=== PATIENT | female | born 1970 | race Caucasian/White ===

== ENCOUNTER 2019-10-28 19:46 | Outpatient (REF) | payer BC, SELFPAY ==
[2019-10-28 18:29] LABS: HGB 14.2 g/dL (12.0-15.5); Mean Corpuscular Hemoglobin 28.1 pg (27.0-33.0); Mean Platelet Volume 10.3 fL (8.0-11.0); Platelet Count 249 x1000/uL (130-400); RBC 5.06 m/cumm (4.00-5.20); RBC Distribution Width 15.4 % (11.7-14.6)
[2019-10-28 19:13] LABS: Absolute Lymphocyte Count 9.91 k/cumm (1.2-3.4); Absolute Neutrophil Count 6.38 k/cumm (1.2-6.7); Atypical Lymphocytes % 3
[2019-10-28 19:14] LABS: Diff Comment Manual Differential; RBC Morphology Normal
[2019-10-28 19:16] LABS: ALT 105 U/L (14-59); AST 94 U/L (15-37); Alkaline Phosphatase 108 U/L (46-116); Anion Gap 8.2 mmol/L (3-11); BUN 18 mg/dL (7-18); Bilirubin, Total 0.5 mg/dL (0.2-1.0); CO2 27.8 mmol/L (21.0-32.0); CREATININE 0.97 mg/dL (0.55-1.02); Calcium 8.6 mg/dL (8.5-10.1); Chloride 102 mmol/L (98-107); Glucose 132 mg/dL (74-106); Potassium 4.5 mmol/L (3.5-5.1); Sodium 138 mmol/L (136-145); Total Protein 7.8 g/dL (6.4-8.2)
== END 2019-10-28 20:06 ==
LOC: NCHCN 19:46
PROVIDERS: PCP Physician Assistant; Visit Provider Physician Assistant
DX: R50.9 Fever, unspecified (principal)
CPT/HCPCS: 80053; 85025

== ENCOUNTER 2019-11-01 16:19 | Outpatient (REF) | payer BC, SELFPAY ==
[2019-11-01 18:10] LABS: Abs Immature Grans 0.11 k/cumm (0.0-0.09); HCT 41.6 % (36.0-46.0); HGB 13.6 g/dL (12.0-15.5); Mean Corp. HGB Concentration 32.7 g/dL (32.0-36.0); Mean Corpuscular Hemoglobin 27.7 pg (27.0-33.0); Mean Corpuscular Volume 84.7 fL (80-95); Mean Platelet Volume 10.6 fL (8.0-11.0); Platelet Count 262 x1000/uL (130-400); RBC 4.91 m/cumm (4.00-5.20); White Blood Cell Count 19.34 k/cumm (4.4-10.8)
[2019-11-01 18:49] LABS: Mono Screening Negative (Negative)
[2019-11-01 19:44] LABS: Absolute Neutrophil Count 5.42 k/cumm (1.2-6.7)
[2019-11-01 19:45] LABS: Absolute Eosinophil Count 0.19 k/cumm (0.0-0.7); Absolute Lymphocyte Count 12.96 k/cumm (1.2-3.4); Absolute Monocyte Count 0.77 k/cumm (0.11-0.7); Atypical Lymphocytes % 25; Diff Comment Manual Differential; RBC Morphology Normal
[2019-11-04 10:40] LABS: EBNA IgG Positive (Negative); EBV Interpretation (See Note); VCA IgG Positive (Negative); VCA IgM Positive (Negative)
[2019-11-04 11:45] LABS: Hepatitis A Antibody IgM Negative (Negative); Hepatitis B Core Antibody Negative (Negative); Hepatitis B surface Ag Negative (Negative); Hepatitis C Ab w Rflx HCV PCR Negative (Negative)
== END 2019-11-01 16:39 ==
LOC: NCHCN 16:19
PROVIDERS: PCP Physician Assistant; Visit Provider Physician Assistant
DX: R50.9 Fever, unspecified (principal)
CPT/HCPCS: 86704; 86709; 86803; 87340; 85025; 86308; 86664; 86665

== ENCOUNTER 2019-11-11 14:58 | Outpatient (REF) | payer BC, SELFPAY ==
[2019-11-11 21:16] LABS: HCT 39.9 % (36.0-46.0); HGB 12.7 g/dL (12.0-15.5); Mean Corp. HGB Concentration 31.8 g/dL (32.0-36.0); Mean Corpuscular Volume 87.9 fL (80-95); Mean Platelet Volume 10.3 fL (8.0-11.0); Platelet Count 311 x1000/uL (130-400); RBC 4.54 m/cumm (4.00-5.20); RBC Distribution Width 16.1 % (11.7-14.6); White Blood Cell Count 11.94 k/cumm (4.4-10.8)
[2019-11-11 21:43] LABS: ALT 120 U/L (14-59); AST 124 U/L (15-37); Alkaline Phosphatase 86 U/L (46-116); Bilirubin, Direct 0.16 mg/dL (0.00-0.20); Bilirubin, Total 0.6 mg/dL (0.2-1.0); Total Protein 7.4 g/dL (6.4-8.2)
== END 2019-11-11 15:18 ==
LOC: NCHCN 14:58
PROVIDERS: PCP Physician Assistant; Visit Provider Family Medicine
DX: R50.9 Fever, unspecified (principal); R19.8 Other specified symptoms and signs involving the digestive system and abdomen; E66.01 Morbid (severe) obesity due to excess calories
CPT/HCPCS: 80076; 85027; 83036

== ENCOUNTER 2019-12-13 12:56 | Outpatient (REF) | payer BC, SELFPAY ==
[2019-12-13 21:04] LABS: ALT 146 U/L (14-59); AST 118 U/L (15-37); Albumin 3.7 g/dL (3.4-5.0); Alkaline Phosphatase 94 U/L (46-116); Bilirubin, Direct 0.18 mg/dL (0.00-0.20); Bilirubin, Total 0.6 mg/dL (0.2-1.0); Total Protein 8.7 g/dL (6.4-8.2)
== END 2019-12-13 13:16 ==
LOC: NCHCN 12:56
PROVIDERS: PCP Physician Assistant; Visit Provider Family Medicine
DX: R74.0 Nonspecific elevation of levels of transaminase and lactic acid dehydrogenase [LDH] (principal); E11.9 Type 2 diabetes mellitus without complications
CPT/HCPCS: 80076

== ENCOUNTER 2019-12-20 15:53 | Outpatient (REF) | payer BC, SELFPAY ==
[2019-12-20 22:15] LABS: COMMENT (LAB VIEW ONLY) 96.43 mg/dL; Microalb ug/mg Crea 2.8 ug/mg Cr
== END 2019-12-20 16:13 ==
LOC: NCHCN 15:53
PROVIDERS: PCP Physician Assistant; Visit Provider Family Medicine
DX: E11.9 Type 2 diabetes mellitus without complications (principal)
CPT/HCPCS: 82043; 82570

== ENCOUNTER 2020-05-26 17:30 | Outpatient (REF) | payer BC, SELFPAY ==
[2020-05-26 22:08] LABS: ALT 46 U/L (14-59); AST 37 U/L (15-37); Albumin 3.7 g/dL (3.4-5.0); Alkaline Phosphatase 93 U/L (46-116); Bilirubin, Direct 0.12 mg/dL (0.00-0.20); Bilirubin, Total 0.5 mg/dL (0.2-1.0); Total Protein 8.1 g/dL (6.4-8.2)
== END 2020-05-26 17:50 ==
LOC: NCHCN 17:30
PROVIDERS: PCP Physician Assistant; Visit Provider Family Medicine
DX: K76.0 Fatty (change of) liver, not elsewhere classified (principal)
CPT/HCPCS: 80076

== ENCOUNTER 2020-12-08 13:59 | Outpatient (REF) | payer BC, SELFPAY ==
[2020-12-08 15:31] LABS: ALT 59 U/L (14-59); AST 42 U/L (15-37); Albumin 3.8 g/dL (3.4-5.0); Alkaline Phosphatase 95 U/L (46-116); Anion Gap 11.4 mmol/L (3-11); BUN 20 mg/dL (7-18); Bilirubin, Total 0.6 mg/dL (0.2-1.0); CO2 27.6 mmol/L (21.0-32.0); CREATININE 0.8 mg/dL (0.55-1.02); Chloride 103 mmol/L (98-107); Glucose 148 mg/dL (74-106); Potassium 4.3 mmol/L (3.5-5.1); Sodium 142 mmol/L (136-145); TSH 1.87 uIU/mL (0.36-3.74); Total Protein 8.2 g/dL (6.4-8.2)
[2020-12-08 15:33] LABS: HCT 46.9 % (36.0-46.0); HGB 14.7 g/dL (11.2-15.7); MCH 27.5 pg (27.0-33.0); MCHC 31.3 % (32.0-36.0); MCV 87.8 fL (80-95); MPV 10.6 fL (8.0-11.0); Platelet Count 304 10^3/uL (130-400); RBC 5.34 10^6/uL (3.93-5.22); RDW 13.8 % (11.7-14.6); RDW-SD 44.2 fL; WBC 11.93 10^3/uL (4.4-10.8)
[2020-12-08 15:51] LABS: ESR 57 mm//hr (0-30)
[2020-12-08 21:22] LABS: COMMENT (LAB VIEW ONLY) 162.31 mg/dL; Microalb ug/mg Crea 6.3 ug/mg Cr
[2020-12-10 04:43] LABS: Vitamin D 25 Total 18.9 ng/mL (30-100)
== END 2020-12-08 14:00 | disposition home or self-care (01) ==
LOC: NCHCN 13:59
PROVIDERS: PCP Physician Assistant; Visit Provider Family Medicine
DX: E11.9 Type 2 diabetes mellitus without complications (principal); R53.83 Other fatigue; I10 Essential (primary) hypertension; R06.09 Other forms of dyspnea
CPT/HCPCS: 80053; 82306; 85027; 85652; 82043; 82570; 84443

== ENCOUNTER 2021-09-14 15:10 | Outpatient (REF) | payer BC, SELFPAY ==
[2021-09-14 14:53] LABS: ALT 37 U/L (14-59); AST 28 U/L (15-37); Alkaline Phosphatase 104 U/L (46-116); Anion Gap 12.6 mmol/L (3-11); BUN 41 mg/dL (7-18); Bilirubin, Total 0.4 mg/dL (0.2-1.0); CO2 25.4 mmol/L (21.0-32.0); CREATININE 1.2 mg/dL (0.55-1.02); Calcium 9.5 mg/dL (8.5-10.1); Calculated LDL 121 mg/dL (<100); Chloride 102 mmol/L (98-107); Cholesterol 169 mg/dL (<200); Estimated GFR 47.36 (mL/min/1.73m2); Glucose 87 mg/dL (74-106); HDL Cholesterol 28 mg/dL (40-60); Potassium 4.4 mmol/L (3.5-5.1); Sodium 140 mmol/L (136-145); Total Protein 8.4 g/dL (6.4-8.2); Triglyceride 103 mg/dL (<150)
== END 2021-09-14 15:11 | disposition home or self-care (01) ==
LOC: NCHCN 15:10
PROVIDERS: PCP Physician Assistant; Visit Provider Family Medicine
DX: E11.9 Type 2 diabetes mellitus without complications (principal); I10 Essential (primary) hypertension; E78.5 Hyperlipidemia, unspecified
CPT/HCPCS: 80053; 80061

== ENCOUNTER 2021-12-14 10:02 | Outpatient (REF) | payer BC, SELFPAY ==
[2021-12-14 15:41] LABS: COMMENT (LAB VIEW ONLY) 104.69 mg/dL; Microalb ug/mg Crea 6.2 ug/mg Cr
== END 2021-12-14 10:03 | disposition home or self-care (01) ==
LOC: NCHCN 10:02
PROVIDERS: PCP Physician Assistant; Visit Provider Family Medicine
DX: E11.9 Type 2 diabetes mellitus without complications (principal); R06.09 Other forms of dyspnea; E66.01 Morbid (severe) obesity due to excess calories
CPT/HCPCS: 82043; 82570

== ENCOUNTER 2022-04-01 18:49 | Outpatient (REF) | payer BC, SELFPAY ==
[2022-04-01 18:07] LABS: HCT 44.7 % (36.0-46.0); HGB 14.5 g/dL (11.2-15.7); MCH 27.7 pg (27.0-33.0); MCHC 32.4 % (32.0-36.0); MCV 85 fL (80-95); MPV 10.8 fL (8.0-11.0); Platelet Count 405 10^3/uL (130-400); RBC 5.24 10^6/uL (3.93-5.22); RDW 13.7 % (11.7-14.6); RDW-SD 42.8 fL; WBC 20.05 10^3/uL (4.4-10.8)
[2022-04-01 18:19] LABS: ALT 25 U/L (14-59); AST 25 U/L (15-37); Albumin 3.9 g/dL (3.4-5.0); Alkaline Phosphatase 110 U/L (46-116); Anion Gap 14.9 mmol/L (3-11); Bilirubin, Total 0.5 mg/dL (0.2-1.0); CO2 21.1 mmol/L (21.0-32.0); Calcium 9.1 mg/dL (8.5-10.1); Chloride 94 mmol/L (98-107); Estimated GFR 12.47 (mL/min/1.73m2); Glucose 110 mg/dL (74-106); Lipase 229 U/L (73-393); Potassium 4.2 mmol/L (3.5-5.1); Sodium 130 mmol/L (136-145); Total Protein 9.2 g/dL (6.4-8.2)
[2022-04-01 18:36] LABS: BUN 95 mg/dL (7-18); CREATININE 3.8 mg/dL (0.55-1.02)
== END 2022-04-01 18:50 | disposition home or self-care (01) ==
LOC: NCHCN 18:49
PROVIDERS: PCP Physician Assistant; Visit Provider Family Medicine
DX: D50.9 Iron deficiency anemia, unspecified (principal); R11.10 Vomiting, unspecified; R19.7 Diarrhea, unspecified; R10.9 Unspecified abdominal pain
CPT/HCPCS: 80053; 83690; 85027

== ENCOUNTER 2022-04-13 11:12 | Outpatient (REF) | payer BC, SELFPAY ==
[2022-04-13 16:05] LABS: MCH 27.3 pg (27.0-33.0); MCHC 31.6 % (32.0-36.0); MCV 86 fL (80-95); MPV 10.5 fL (8.0-11.0); Platelet Count 335 10^3/uL (130-400); RDW 13.8 % (11.7-14.6); RDW-SD 43.8 fL; WBC 14.22 10^3/uL (4.4-10.8)
[2022-04-13 16:33] LABS: Anion Gap 6.3 mmol/L (3-11); BUN 25 mg/dL (7-18); CO2 29.7 mmol/L (21.0-32.0); CREATININE 1.1 mg/dL (0.55-1.02); Calcium 9.1 mg/dL (8.5-10.1); Chloride 106 mmol/L (98-107); Estimated GFR 60.46 (mL/min/1.73m2); Glucose 99 mg/dL (74-106); Lipase 142 U/L (73-393); Potassium 4.1 mmol/L (3.5-5.1); Sodium 142 mmol/L (136-145)
== END 2022-04-13 11:13 | disposition home or self-care (01) ==
LOC: NCHCN 11:12
PROVIDERS: PCP Physician Assistant; Visit Provider Family Medicine
DX: E86.0 Dehydration (principal); N17.9 Acute kidney failure, unspecified; I95.9 Hypotension, unspecified; R74.8 Abnormal levels of other serum enzymes
CPT/HCPCS: 80048; 82306; 83690; 85027

== ENCOUNTER 2022-05-31 13:52 | Outpatient (REF) | payer BC, SELFPAY ==
[2022-05-31 16:19] LABS: Anion Gap 8.5 mmol/L (3-11); BUN 23 mg/dL (7-18); CO2 27.5 mmol/L (21.0-32.0); CREATININE 0.8 mg/dL (0.55-1.02); Calcium 9.7 mg/dL (8.5-10.1); Chloride 103 mmol/L (98-107); Glucose 127 mg/dL (74-106); Potassium 3.9 mmol/L (3.5-5.1); Sodium 139 mmol/L (136-145)
== END 2022-05-31 13:53 | disposition home or self-care (01) ==
LOC: NCHCN 13:52
PROVIDERS: PCP Physician Assistant; Visit Provider Family Medicine
DX: I95.9 Hypotension, unspecified (principal); E86.0 Dehydration
CPT/HCPCS: 80048

== ENCOUNTER 2023-02-20 15:49 | Outpatient (REF) | payer BC, SELFPAY ==
[2023-02-20 21:29] LABS: Abs Immature Grans 0.07 10^3/uL (0.0-0.06); Absolute Basophil Count 0.05 10^3/uL (0.0-0.2); Absolute Eosinophil Count 0.27 10^3/uL (0.0-0.7); Absolute Lymphocyte Count 3.33 10^3/uL (1.2-3.4); Absolute Monocyte Count 0.72 10^3/uL (0.1-0.8); Basophils % 0.4; HCT 42.7 % (36.0-46.0); HGB 13.5 g/dL (11.2-15.7); Immature Grans % 0.5; Lymphocytes % 24.6; MCH 27.1 pg (27.0-33.0); MCHC 31.6 % (32.0-36.0); MCV 86 fL (80-95); MPV 10.2 fL (8.0-11.0); Monocytes % 5.3; Neutrophils % 67.2; Platelet Count 368 10^3/uL (130-400); RBC 4.99 10^6/uL (3.93-5.22); RDW 14.3 % (11.7-14.6); RDW-SD 45.1 fL; WBC 13.54 10^3/uL (4.4-10.8)
[2023-02-20 21:35] LABS: ESR 72 mm/hr (0-30)
[2023-02-20 21:52] LABS: Anion Gap 12.2 mmol/L (3-11); BUN 26 mg/dL (7-18); C-Reactive Protein 2.51 mg/dL (0.0-0.3); CO2 25.8 mmol/L (21.0-32.0); CREATININE 1.1 mg/dL (0.55-1.02); Calcium 9.6 mg/dL (8.5-10.1); Chloride 102 mmol/L (98-107); Estimated GFR 60.08 (mL/min/1.73m2); Glucose 112 mg/dL (74-106); Potassium 3.7 mmol/L (3.5-5.1); Sodium 140 mmol/L (136-145)
== END 2023-02-20 15:50 | disposition home or self-care (01) ==
LOC: NCHCN 15:49
PROVIDERS: PCP Physician Assistant; Visit Provider Family Medicine
DX: M79.641 Pain in right hand (principal); E66.01 Morbid (severe) obesity due to excess calories; E11.9 Type 2 diabetes mellitus without complications
CPT/HCPCS: 80048; 85652; 85025; 86140

== ENCOUNTER 2023-02-23 09:57 | Outpatient (REF) | payer BC, SELFPAY ==
[2023-02-23 22:27] LABS: Rheumatoid Factor <8.6 IU/mL (<12.0)
[2023-02-24 09:06] LABS: Cyclic Citrullinated Peptide <2.5 U/mL (<5.0)
[2023-02-24 12:41] LABS: Lyme Ab w Rflx to Lyme Confirm Negative (Negative)
[2023-02-24 14:19] LABS: ANA Interpretation Positive (Negative); ANA Titer Pattern 1:320 Homogeneous
== END 2023-02-23 09:58 | disposition home or self-care (01) ==
LOC: NCHCN 09:57
PROVIDERS: PCP Physician Assistant; Visit Provider Family Medicine
DX: M79.641 Pain in right hand (principal)
CPT/HCPCS: 86200; 86038; 86431; 86618

== ENCOUNTER 2023-03-08 18:06 | Outpatient (REF) | payer BC, SELFPAY ==
[2023-03-08 22:02] LABS: ALT 38 U/L (14-59); AST 32 U/L (15-37); Albumin 3.5 g/dL (3.4-5.0); Alkaline Phosphatase 105 U/L (46-116); Bilirubin, Total 0.5 mg/dL (0.2-1.0); Folate > 20.0 ng/mL (8.6-20.0); Total Protein 8.2 g/dL (6.4-8.2)
[2023-03-08 22:04] LABS: COMMENT (LAB VIEW ONLY) 165.43 mg/dL
[2023-03-08 22:08] LABS: Microalb ug/mg Crea 70.8 ug/mg Cr
[2023-03-08 22:12] LABS: Bilirubin, Direct 0.1 mg/dL (0.0-0.2)
== END 2023-03-08 18:07 | disposition home or self-care (01) ==
LOC: NCHCN 18:06
PROVIDERS: PCP Physician Assistant; Visit Provider Family Medicine
DX: M06.9 Rheumatoid arthritis, unspecified (principal); E11.9 Type 2 diabetes mellitus without complications
CPT/HCPCS: 80076; 82043; 82570; 82746

== ENCOUNTER 2023-07-21 16:06 | Outpatient (REF) | payer BC, SELFPAY ==
--- OUTSIDE RECORDS SUMMARY | 2023-07-21 16:11 | XMS_ITS | CCD ---
Author Name Unknown Address [address] [place] [address] [phone] Organization Unknown Address [address] [place] [address] [phone] Care Team Providers Care Geopolitics Teacher Name Role Phone ANNETTE ADAMES Attending Physician [phone] Vital Signs Unknown or Not Available. Allergies Unknown or Not Available. Procedures Unknown or Not Available. History of Immunizations Unknown or Not Available. Problems Problem Code Start Date Resolved Date Status Hypertension 88948297 Active Acute renal failure 02136338 Activ e Dehydration 71270801 Active Hypotension 20292635 Active Morbid obesity 286877835 Active Diabetes 2 42315472 Active Diabetes type I 58456903 04/02/2022 Resolved Results Unknown or Not Available. Active Medications Medication Code Dose Units Frequency Route Modificatio n Start Date/Time Indomethacin 50MG Oral Capsule 19770814 1 CAPSULE EVERY 8 HOURS ORAL 02/11/2023 08:02 Prescription Detail TAKE 1 CAPSULE ORAL EVERY 8 HOURS Vitamin D 1000IU Oral Tablet 624027 3015 INTERNATIONAL UNITS DAILY ORAL 04/03/2022 10:50 Prescription Detail TAKE 1000 INTERNATIONAL UNITS ORAL DAILY Medications Administered During Visit Unknown or Not Available. Encounters Encounter Diagnosis Diagnosis Code Start Date Acute kidney failure, unspecified N179 04/02/2022 Social History Smoking Status Code Start Date End Date Never smoker [id number] Patient Decision Aids Unknown or Not Available. Discharge Instructions You were admitted to [facility] on 04/02/2022 02:04 with a principal diagnosis of Acute kidney failure, unspecified You were discharged from [facility] on 04/03/2022 02:04 Should you have any questions prior to discharge, please contact a member of your healthcare team. If you have left the hospital and have any questions, please contact your primary care physician. Chief Complaint and Reason For Visit Unknown or Not Available. Function Status Unknown or Not Available. Plan of Care Unknown or Not Available. Referral/Transition of Care Unknown or Not Available.
--- OUTSIDE RECORDS SUMMARY | 2023-07-21 16:11 | XMS_ITS | CCD ---
Author Name Unknown Address [address] [place] [address] [id number] Organization Unknown Address [address] [place] [address] [phone] Care Team Providers Care Domestic Housekeeper Name Role Phone JULIET REYES Attending Physician [phone] JULIET REYES Rounding (Secondary) Physician [phone] Vital Signs Unknown or Not Available. Allergies Unknown or Not Available. Procedures Unknown or Not Available. History of Immunizations Unknown or Not Available. Problems Problem Code Start Date Resolved Date Status Hypertension 99108740 Active Acute renal failure 25234097 Activ e Dehydration 85263729 Active Hypotension 94236510 Active Morbid obesity 339115322 Active Diabetes 2 34532163 Active Diabetes type I 42135399 04/02/2022 Resolved Results Unknown or Not Available. Active Medications Medication Code Dose Units Frequency Route Modificatio n Start Date/Time Indomethacin 50MG Oral Capsule 19770814 1 CAPSULE EVERY 8 HOURS ORAL 02/11/2023 08:02 Prescription Detail TAKE 1 CAPSULE ORAL EVERY 8 HOURS Vitamin D 1000IU Oral Tablet 242698 9078 INTERNATIONAL UNITS DAILY ORAL 04/03/2022 10:50 Prescription Detail TAKE 1000 INTERNATIONAL UNITS ORAL DAILY Medications Administered During Visit Unknown or Not Available. Encounters Encounter Diagnosis Diagnosis Code Start Date Paresthesia 78303165 02/11/2022 Social History Smoking Status Code Start Date End Date Never smoker 797518045 Patient Decision Aids Unknown or Not Available. Discharge Instructions You were admitted to [facility] on 02/11/2022 15:31 with a principal diagnosis of Paresthesia of skin You were discharged from [facility] on 02/11/2022 00:00 Should you have any questions prior to [...]
--- OUTSIDE RECORDS SUMMARY | 2023-07-21 16:11 | XMS_ITS | CCD ---
Author Name Unknown Address [address] [place] [address] [id number] Organization Unknown Address [address] [place] [address] [id number] Care Team Providers Care Landscape Designer Name Role Phone ANNETTE ADAMES Attending Physician [phone] ANNETTE ADAMES Er Physician [phone] MAAME PEREYRA (Secondary) Physician [phone] MATTHEW Arango Registered Nurse [phone] Vital Signs Vital Sign Value Unit Date/Time Recent/Initial ? BMI (Body Mass Index) 47.49 kg/m^2 04/02/2022 09: 17 Initial VS Weight Measured 251.33 lbs 04/02/2022 09:17 Ini tial VS Height 61 in 04/02/2022 09:17 Initial VS BSA (Body Surface Area) 2.22 m^2 04/02/2022 0 9:17 Initial VS BP Systolic 90 mmHg 04/02/2022 09:17 Initial VS BP Diastolic 44 mmHg 04/02/2022 09:17 Initia l VS Respiratory Rate 20 bpm 04/02/2022 09:17 In itial VS Heart Rate 85 bpm 04/02/2022 09:17 Initial VS O2 % BldC Oximetry 95 % 04/02/2022 09:17 Initial VS Body Temperature 36.2 degrees 04/02/2022 09:17 In itial VS BMI (Body Mass Index) 47.67 kg/m^2 04/02/2022 17: 55 Most Recent VS Weight Measured 252.32 lbs 04/02/2022 17:55 Mos t Recent VS Height 61 in 04/02/2022 17:55 Most Rec ent VS BSA (Body Surface Area) 2.22 m^2 04/02/2022 1 7:55 Most Recent VS BP Systolic 114 mmHg 04/03/2022 07:38 Most Re cent VS BP Diastolic 51 mmHg 04/03/2022 07:38 Most R ecent VS Respiratory Rate 20 bpm 04/03/2022 07:[address] Recent VS Heart Rate 81 bpm 04/03/2022 07:38 Most Rec ent VS O2 % BldC Oximetry 99 % 04/03/2022 07:38 Most Recent VS Body Temperature 36.2 degrees 04/03/2022 07:[address] Recent VS Allergies Unknown or Not Available. Procedures Unknown or Not Available. History of Immunizations Unknown or Not Available. Problems Problem Code Start Date Resolved Date Status Hypertension 80273926 Active Acute renal failure 92875381 Activ e Dehydration 26933270 Active Hypotension 46379071 Active Morbid obesity 383009141 Active Diabetes 2 87330423 Active Diabetes type I 79765636 04/02/2022 Resolved Results BASIC METABOLIC PANEL (BMP) - Collect Date/Time: 04/03/2022 06:25 Test Name Code Test Result Test Units Test Ref Rang e GLUCOSE 2345-7 106 mg/dL L=70 H=116 BUN 3094-0 84 mg/dL L=6 H=25 CREATININE 2160-0 1.84 mg/dL L=0.51 H=0.95 SODIUM SERUM 2951-2 141 mmol/L L=136 H=145 POTASSIUM SERUM 2823-3 4.0 mmol/L L=3.4 H=5 .2 CHLORIDE SERUM 2075-0 107 mmol/L L=96 H=110 CARBON DIOXIDE (CO2) 2028-9 25 mmol/L L=22 H=34 ANION GAP 76050-3 9.0 mmol/L CALCIUM SERUM 74703-2 8.4 mg/dL L=8.2 H=10. 2 AGE 51 years eGFR (non-Afr.Amer.) 46067-2 29 mL/min eGFR (Afr-Greek) 85543-9 35 mL/min BASIC METABOLIC PANEL (BMP) - Collect Date/Time: 04/02/2022 22:50 Test Name Code Test Result Test Units Test Ref Rang e GLUCOSE 2345-7 100 mg/dL L=70 H=116 BUN 3094-0 95 mg/dL L=6 H=25 CREATININE 2160-0 2.57 mg/dL L=0.51 H=0.95 SODIUM SERUM 2951-2 139 mmol/L L=136 H=145 POTASSIUM SERUM 2823-3 3.7 mmol/L L=3.4 H=5 .2 CHLORIDE SERUM 2075-0 105 mmol/L L=96 H=110 CARBON DIOXIDE (CO2) 2028-9 23 mmol/L L=22 H=34 ANION GAP 77752-4 10.6 mmol/L CALCIUM SERUM 92830-4 8.3 mg/dL L=8.2 H=10. 2 AGE 51 years eGFR (non-Afr.Amer.) 83923-5 20 mL/min eGFR (Afr-Greek) 83835-6 24 mL/min COMPREHENSIVE METABOLIC PANE L (CMP) - Collect Date/Time: 04/02/2022 10:15 Test Name Code Test Result Test Units Test Ref Rang e GLUCOSE 2345-7 105 mg/dL L=70 H=116 BUN 3094-0 108 mg/dL L=6 H=25 CREATININE 2160-0 5.23 mg/dL L=0.51 H=0.95 SODIUM SERUM 2951-2 130 mmol/L L=136 H=145 POTASSIUM SERUM 2823-3 4.2 mmol/L L=3.4 H=5 .2 CHLORIDE SERUM 2075-0 92 mmol/L L=96 H=110 CARBON DIOXIDE (CO2) 2028-9 23 mmol/L L=22 H=34 ANION GAP 91671-9 15.4 mmol/L CALCIUM SERUM 47819-8 9.2 mg/dL L=8.2 H=10. 2 BILIRUBIN TOTAL 1975-2 0.4 mg/dL L=0.0 H=1 .3 ALK. PHOS. 6768-6 107 U/L L=46 H=116 SGOT (AST) 1920-8 13 U/L L=15 H=37 SGPT (ALT) 1742-6 22 U/L L=12 H=78 TOTAL PROTEIN 2885-2 9.2 gm/dL L=6.0 H=8.0 ALBUMIN 1751-7 4.1 gm/dL L=3.4 H=5.0 AGE 51 years eGFR (non-Afr.Amer.) 30285-5 9 mL/min eGFR (Afr-Greek) 40335-5 10 mL/min LIPASE* - Collect Date/Time: 04/03/2022 06:25 Test Name Code Test Result Test Units Test Ref Rang e LIPASE 521 U/L L=73 H=393 LIPASE* - Collect Date/Time: 04/02/2022 10:15 Test Name Code Test Result Test Units Test Ref Rang e LIPASE 519 U/L L=73 H=393 MAGNESIUM SERUM* - Collect D ate/Time: 04/02/2022 10:15 Test Name Code Test Result Test Units Test Ref Rang e MAGNESIUM 27230-9 2.0 mg/dL L=1.8 H=2.4 TRIGLYCERIDES SERUM - Collec t Date/Time: 04/03/2022 06:25 Test Name Code Test Result Test Units Test Ref Rang e TRIGLYCERIDES 2571-8 124 mg/dL L=53 H=223 CBC W/ DIFFERENTIAL* - Colle ct Date/Time: 04/03/2022 06:25 Test Name Code Test Result Test Units Test Ref Rang e WBC 6690-2 12.82 th/cmm L=5.00 H=10.00 NEUT % 54.7 % L=40.0 H=80.0 LYMPH % 35.6 % L=10.0 H=50.0 MONO % 35450-3 4.8 % L=2.0 H=12.0 EOS % 3.8 % L=0.0 H=8.0 BASO % 0.5 % L=0.0 H=3.0 IG % 2514-8 0.6 % L=0.0 H=1.1 NRBC % 87438-6 0.0 % L=0.0 H=0.0 NEUT abs count 751-8 7.0 th/cmm L=1.6 H=8. 4 LYMPH abs count 731-0 4.6 th/cmm L=1.5 H=4 .0 MONO abs count 742-7 0.6 th/cmm L=0.2 H=1. 0 EOS abs count 711-2 0.5 th/cmm L=0.0 H=0.5 BASO abs count 704-7 0.1 th/cmm L=0.0 H=0. 2 IG abs count 70138-6 0.1 th/cmm L=0.0 H=0.1 NRBC abs count 43987-9 0.0 mil/cmm L=0.0 H=0. 0 RBC 789-8 4.06 mil/cmm L=3.90 H=5.40 HEMOGLOBIN 718-7 11.3 gm/dL L=12.0 H=16.0 HEMATOCRIT 4544-3 35 % L=37 H=47 MCV 787-2 86 fL L=82 H=92 MCH 785-6 27.8 pg L=27.0 H=31.0 MCHC 786-4 32.5 % L=32.0 H=36.0 RDW-SD 788-0 42.9 fL L=39.0 H=49.0 PLATELET COUNT 777-3 291 th/cmm L=150 H=45 0 Atyp lymphs 1+ N/A CBC W/ DIFFERENTIAL* - [facility] ct Date/Time: 04/02/2022 10:15 Test Name Code Test Result Test Units Test Ref Rang e WBC 6690-2 16.01 th/cmm L=5.00 H=10.00 NEUT % 63.7 % L=40.0 H=80.0 LYMPH % 28.5 % L=10.0 H=50.0 MONO % 30255-5 4.2 % L=2.0 H=12.0 EOS % 2.4 % L=0.0 H=8.0 BASO % 0.6 % L=0.0 H=3.0 IG % 2514-8 0.6 % L=0.0 H=1.1 NRBC % 61933-9 0.0 % L=0.0 H=0.0 NEUT abs count 751-8 10.2 th/cmm L=1.6 H=8. 4 LYMPH abs count 731-0 4.6 th/cmm L=1.5 H=4 .0 MONO abs count 742-7 0.7 th/cmm L=0.2 H=1. 0 EOS abs count 711-2 0.4 th/cmm L=0.0 H=0.5 BASO abs count 704-7 0.1 th/cmm L=0.0 H=0. 2 IG abs count 76215-9 0.1 th/cmm L=0.0 H=0.1 NRBC abs count 66410-3 0.0 mil/cmm L=0.0 H=0. 0 RBC 789-8 5.28 mil/cmm L=3.90 H=5.40 HEMOGLOBIN 718-7 14.4 gm/dL L=12.0 H=16.0 HEMATOCRIT 4544-3 44 % L=37 H=47 MCV 787-2 84 fL L=82 H=92 MCH 785-6 27.3 pg L=27.0 H=31.0 MCHC 786-4 32.4 % L=32.0 H=36.0 RDW-SD 788-0 42.6 fL L=39.0 H=49.0 PLATELET COUNT 777-3 344 th/cmm L=150 H=45 0 Atyp lymphs 1+ N/A LATOYA COVID RHEONIX* - Allie ect Date/Time: 04/02/2022 11:30 Test Name Code Test Result Test Units Test Ref Rang e Tier- 81115-5 INPATIENT/ED N/A SARS COV2 RNA: 42561-0 NEGATIVE N/A REFERENCE RANGE: NEGAT URINALYSIS WITH REFLEX CULT IF POSITIVE* - Collect Date/Time: 04/02/2022 11:48 Test Name Code Test Result Test Units Test Ref Rang e COLLECTION MODE: 16785-2 CLEAN CATCH N/A Color 5778-6 YELLOW N/A yellow Appearance 5767-9 CLEAR N/A clear Glucose urine 22567-5 NEGATIVE N/A negative mg /dl Bilirubin 5770-3 NEGATIVE N/A negative Ketones 2514-8 NEGATIVE N/A negative mg/dl Spec gravity 5811-5 1.015 N/A 1.003 - 1.03 0 pH urine 2756-5 5.5 N/A 5.0 - 7.0 Protein 45515-9 NEGATIVE N/A negative mg/dl Urobilinogen 27040-6 0.2 N/A <or= 1 EU/dl Nitrite. 5802-4 NEGATIVE N/A negative Blood 5794-3 NEGATIVE N/A negative Leukocytes. NEGATIVE N/A negative MICROSCOPIC NOT INDICAT N/A Active Medications Medications Administered During Visit Medication Dose Units Frequency Route Date/Time of Last Dose SODIUM CHLORIDE 0.9% 1000ML 1000 ML X1 04/02/2022 11:10 ONDANSETRON INJ SDV: 4MG/2ML 4 MG X1 I [employer] 04/02/2022 11:09 SODIUM CHLORIDE 0.9% 1000ML 1000 ML X1 04/02/2022 13:46 SODIUM CHLORIDE 0.9% 1000ML 1000 ML CONT 04/03/2022 09:27 SODIUM CHLORIDE 0.9% FLUSH 1 0ML SYRINGE 2 ML Q8H IVP 04/03/2022 06:2 5 Encounters Encounter Diagnosis Diagnosis Code Start Date Acute kidney failure, unspecified N179 04/02/2022 Social History Smoking Status Code Start Date End Date Never smoker 005389930 Patient Decision Aids Unknown or Not Available. Discharge Instructions You were admitted to [facility] on 04/02/2022 13:29 with a principal diagnosis of Acute kidney failure, unspecified You had the following tests done:BASIC METABOLIC PANEL (BMP)CBC W/ DIFFERENTIAL*LIPASE*TRIGLYCERIDES SERUMBASIC METABOLIC PANEL (BMP)URINALYSIS WITH REFLEX CULT IF POSITIVE*[facility] COVID RHEONIX*CBC W/ DIFFERENTIAL*COMPREHENSIVE METABOLIC PANEL (CMP)LIPASE*MAGNESIUM SERUM* You were discharged from [facility] on 04/03/2022 11:40 Should you have any questions prior to discharge, please contact a member of your healthcare team. If you have left the hospital and have any questions, please contact your primary care physician. Chief Complaint and Reason For Visit Chief Complaint Date of Onset RANDY DIARRHEA 04/02/2022 Function Status Unknown or Not Available. Plan of Care Unknown or Not Available. Referral/Transition of Care Unknown or Not Available.
--- OUTSIDE RECORDS SUMMARY | 2023-07-21 16:11 | XMS_ITS | CCD ---
Author Name Unknown Address [address] [place] [address] [phone] Organization Unknown Address [address] [place] [address] [phone] Care Team Providers Care Shuttle Fitting Supervisor Name Role Phone ERICK HERRMANN Attending Physician [phone] ERICK HERRMANN Rounding (Secondary) Physician [phone] Vital Signs Unknown or Not Available. Allergies Unknown or Not Available. Procedures Unknown or Not Available. History of Immunizations Unknown or Not Available. Problems Problem Code Start Date Resolved Date Status Hypertension 32729540 Active Acute renal failure 32363131 Activ e Dehydration 30091759 Active Hypotension 22189716 Active Morbid obesity 319893126 Active Diabetes 2 53236837 Active Diabetes type I 35532174 04/02/2022 Resolved Results Unknown or Not Available. Active Medications Medication Code Dose Units Frequency Route Modificatio n Start Date/Time Indomethacin 50MG Oral Capsule 19770814 1 CAPSULE EVERY 8 HOURS ORAL 02/11/2023 08:02 Prescription Detail TAKE 1 CAPSULE ORAL EVERY 8 HOURS Vitamin D 1000IU Oral Tablet 952530 3415 INTERNATIONAL UNITS DAILY ORAL 04/03/2022 10:50 Prescription Detail TAKE 1000 INTERNATIONAL UNITS ORAL DAILY Medications Administered During Visit Unknown or Not Available. Encounters Encounter Diagnosis Diagnosis Code Start Date Refusal of treatment by patient 509157627 03/28/2022 Social History Smoking Status Code Start Date End Date Never smoker 924541983 Patient Decision Aids Unknown or Not Available. Discharge Instructions You were admitted to [facility] on 03/28/2022 10:36 with a principal diagnosis of Procedure and treatment not carried out because of patient's decision for other reasons You were discharged from [facility] on 03/28/2022 00:00 Should you have any questions prior [...]
--- OUTSIDE RECORDS SUMMARY | 2023-07-21 16:12 | XMS_ITS | CCD ---
Author Name Unknown Address [address] [place] [address] [id number] Organization Unknown Address [address] [place] [address] [id number] Care Team Providers Care Neonatal Critical Care Nurse Name Role Phone MAXI MAYERS Attending Physician [phone] GIOVANA BARNETT Er Physician 1 [phone] TU Bai Registered Nurse [phone] Vital Signs Vital Sign Value Unit Date/Time Recent/Initial ? BMI (Body Mass Index) 52.9 kg/m^2 10/19/2021 21: 19 Initial VS Weight Measured 279.99 lbs 10/19/2021 21:19 Ini tial VS Height 61 in 10/19/2021 21:19 Initial VS BSA (Body Surface Area) 2.34 m^2 10/19/2021 2 1:19 Initial VS BP Systolic 121 mmHg 10/19/2021 21:19 Initial VS BP Diastolic 48 mmHg 10/19/2021 21:19 Initia l VS Respiratory Rate 16 bpm 10/19/2021 21:19 In itial VS Heart Rate 86 bpm 10/19/2021 21:19 Initial VS O2 % BldC Oximetry 99 % 10/19/2021 21:19 Initial VS Body Temperature 36.4 degrees 10/19/2021 21:19 In itial VS BP Systolic 121 mmHg 10/20/2021 00:23 Most Re cent VS BP Diastolic 72 mmHg 10/20/2021 00:23 Most R ecent VS Respiratory Rate 16 bpm 10/20/2021 00:[address] Recent VS Heart Rate 72 bpm 10/20/2021 00:23 Most Rec ent VS O2 % BldC Oximetry 97 % 10/20/2021 00:23 Most Recent VS Allergies Unknown or Not Available. Procedures Unknown or Not Available. History of Immunizations Unknown or Not Available. Problems Problem Code Start Date Resolved Date Status Hypertension 13707297 Active Acute renal failure 38764508 Activ e Dehydration 12695664 Active Hypotension 94706724 Active Morbid obesity 776498832 Active Diabetes 2 90497561 Active Diabetes type I 40666496 04/02/2022 Resolved Results COMPREHENSIVE METABOLIC PANE L ([facility]) - Collect Date/Time: 10/19/2021 21:23 Test Name Code Test Result Test Units Test Ref Rang e GLUCOSE 2345-7 121 mg/dL L=70 H=116 BUN 3094-0 27 mg/dL L=6 H=25 CREATININE 2160-0 0.99 mg/dL L=0.51 H=0.95 SODIUM SERUM 2951-2 139 mmol/L L=136 H=145 POTASSIUM SERUM 2823-3 4.0 mmol/L L=3.4 H=5 .2 CHLORIDE SERUM 2075-0 102 mmol/L L=96 H=110 CARBON DIOXIDE (CO2) 2028-9 28 mmol/L L=22 H=34 ANION GAP 66117-6 9.5 mmol/L CALCIUM SERUM 95020-3 9.5 mg/dL L=8.2 H=10. 2 BILIRUBIN TOTAL 1975-2 0.3 mg/dL L=0.0 H=1 .3 ALK. PHOS. 6768-6 97 U/L L=46 H=116 SGOT (AST) 1920-8 23 U/L L=15 H=37 SGPT (ALT) 1742-6 28 U/L L=12 H=78 TOTAL PROTEIN 2885-2 8.7 gm/dL L=6.0 H=8.0 ALBUMIN 1751-7 3.8 gm/dL L=3.4 H=5.0 AGE 50 years eGFR (non-Afr.Amer.) 66607-0 59 mL/min eGFR (Afr-Puerto Rican) 86269-7 72 mL/min LIPASE* - Collect Date/Time: 10/19/2021 21:23 Test Name Code Test Result Test Units Test Ref Rang e LIPASE 99 U/L L=73 H=393 THYROID TESTING CASCADE* - C ollect Date/Time: 10/19/2021 21:23 Test Name Code Test Result Test Units Test Ref Rang e TSH. 3014-8 3.162 uIU/mL L=0.360 H=3.74 0 TROPONIN HIGH SENSITIVITY* - Collect Date/Time: 10/19/2021 23:10 Test Name Code Test Result Test Units Test Ref Rang e TROPONIN HS 5.4 pg/mL L=0.0 H=60.4 Specimen seq. Random N/A TROPONIN HIGH SENSITIVITY* - Collect Date/Time: 10/19/2021 21:23 Test Name Code Test Result Test Units Test Ref Rang e TROPONIN HS 6.2 pg/mL L=0.0 H=60.4 Specimen seq. Random N/A CBC W/ DIFFERENTIAL* - Colle ct Date/Time: 10/19/2021 21:23 Test Name Code Test Result Test Units Test Ref Rang e WBC 6690-2 14.38 th/cmm L=5.00 H=10.00 NEUT % 59.5 % L=40.0 H=80.0 LYMPH % 31.5 % L=10.0 H=50.0 MONO % 17365-7 6.0 % L=2.0 H=12.0 EOS % 2.0 % L=0.0 H=8.0 BASO % 0.5 % L=0.0 H=3.0 IG % 2514-8 0.5 % L=0.0 H=1.1 NRBC % 90518-1 0.0 % L=0.0 H=0.0 NEUT abs count 751-8 8.6 th/cmm L=1.6 H=8. 4 LYMPH abs count 731-0 4.5 th/cmm L=1.5 H=4 .0 MONO abs count 742-7 0.9 th/cmm L=0.2 H=1. 0 EOS abs count 711-2 0.3 th/cmm L=0.0 H=0.5 BASO abs count 704-7 0.1 th/cmm L=0.0 H=0. 2 IG abs count 89557-0 0.1 th/cmm L=0.0 H=0.1 NRBC abs count 85930-1 0.0 mil/cmm L=0.0 H=0. 0 RBC 789-8 4.84 mil/cmm L=3.90 H=5.40 HEMOGLOBIN 718-7 13.6 gm/dL L=12.0 H=16.0 HEMATOCRIT 4544-3 42 % L=37 H=47 MCV 787-2 87 fL L=82 H=92 MCH 785-6 28.1 pg L=27.0 H=31.0 MCHC 786-4 32.5 % L=32.0 H=36.0 RDW-SD 788-0 44.5 fL L=39.0 H=49.0 PLATELET COUNT 777-3 336 th/cmm L=150 H=45 0 Active Medications Medications Administered During Visit Medication Dose Units Frequency Route Date/Time of Last Dose ASPIRIN TABLET CHEWABLE: 81MG 243 MG X1 CHEW 10/19/2021 21:23 SODIUM CHLORIDE 0.9% 1000ML 1000 ML X1 10/19/2021 23:14 ACETAMINOPHEN TABLET: 325MG 975 MG X1 PO 10/19/2021 23:14 Encounters Encounter Diagnosis Diagnosis Code Start Date Other fatigue R5383 10/19/2021 Social History Smoking Status Code Start Date End Date Never smoker 404254641 Patient Decision Aids Unknown or Not Available. Discharge Instructions You were admitted to [facility] on 10/19/2021 21:04 with a principal diagnosis of Other fatigue You had the following tests done:TROPONIN HIGH SENSITIVITY*CBC W/ DIFFERENTIAL*COMPREHENSIVE METABOLIC PANEL (CMP)LIPASE*THYROID TESTING CASCADE*TROPONIN HIGH SENSITIVITY* You were discharged from [facility] on 10/20/2021 00:25 Should you have any questions prior to discharge, please contact a member of your healthcare team. If you have left the hospital and have any questions, please contact your primary care physician. Chief Complaint and Reason For Visit Chief Complaint Date of Onset CHEST PAIN Function Status Unknown or Not Available. Plan of Care Unknown or Not Available. Referral/Transition of Care Unknown or Not Available.
--- OUTSIDE RECORDS SUMMARY | 2023-07-21 16:12 | XMS_ITS | CCD ---
Author Name Unknown Address [address] [place] [address] [id number] Organization Unknown Address [address] [place] [address] [phone] Care Team Providers Care Processing Tech Name Role Phone GUILLERMO GONZALES Attending Physician [phone] GUILLERMO GONZALES Rounding (Secondary) Physician [phone] Vital Signs Unknown or Not Available. Allergies Unknown or Not Available. Procedures Unknown or Not Available. History of Immunizations Unknown or Not Available. Problems Problem Code Start Date Resolved Date Status Hypertension 48291148 Active Acute renal failure 34476391 Activ e Dehydration 78192706 Active Hypotension 21129633 Active Morbid obesity 401292958 Active Diabetes 2 76474666 Active Diabetes type I 65941866 04/02/2022 Resolved Results Unknown or Not Available. Active Medications Medication Code Dose Units Frequency Route Modificatio n Start Date/Time Indomethacin 50MG Oral Capsule 19770814 1 CAPSULE EVERY 8 HOURS ORAL 02/11/2023 08:02 Prescription Detail TAKE 1 CAPSULE ORAL EVERY 8 HOURS Vitamin D 1000IU Oral Tablet 626709 6088 INTERNATIONAL UNITS DAILY ORAL 04/03/2022 10:50 Prescription Detail TAKE 1000 INTERNATIONAL UNITS ORAL DAILY Medications Administered During Visit Unknown or Not Available. Encounters Encounter Diagnosis Diagnosis Code Start Date Other chest pain R0789 11/26/2021 Social History Smoking Status Code Start Date End Date Never smoker 619455733 Patient Decision Aids Unknown or Not Available. Discharge Instructions You were admitted to [facility] on 11/26/2021 16:53 with a principal diagnosis of Other chest pain You were discharged from [facility] on 11/26/2021 00:00 Should you have any questions prior [...]
[2023-07-21 18:00] LABS: Abs Immature Grans 0.14 10^3/uL (0.0-0.06); Absolute Basophil Count 0.06 10^3/uL (0.0-0.2); Absolute Eosinophil Count 0.16 10^3/uL (0.0-0.7); Absolute Lymphocyte Count 2.19 10^3/uL (1.2-3.4); Absolute Monocyte Count 0.83 10^3/uL (0.1-0.8); Absolute Neutrophil Count 12.34 10^3/uL (1.2-6.7); Basophils % 0.4; HCT 43.4 % (36.0-46.0); HGB 13.6 g/dL (11.2-15.7); Immature Grans % 0.9; Lymphocytes % 13.9; MCH 28.8 pg (27.0-33.0); MCHC 31.3 % (32.0-36.0); MCV 92 fL (80-95); Monocytes % 5.3; Neutrophils % 78.5; Platelet Count 392 10^3/uL (130-400); RBC 4.73 10^6/uL (3.93-5.22); RDW 14.3 % (11.7-14.6); RDW-SD 48.2 fL; WBC 15.72 10^3/uL (4.4-10.8)
[2023-07-21 18:11] LABS: ALT 52 U/L (14-59); AST 41 U/L (15-37); Albumin 3.7 g/dL (3.4-5.0); Alkaline Phosphatase 97 U/L (46-116); BUN 24 mg/dL (7-18); Bilirubin, Total 0.4 mg/dL (0.2-1.0); Calcium 9.9 mg/dL (8.5-10.1); Chloride 102 mmol/L (98-107); Estimated GFR 67.36 (mL/min/1.73m2); Glucose 133 mg/dL (74-106); Sodium 141 mmol/L (136-145); Total Protein 8.4 g/dL (6.4-8.2)
== END 2023-07-21 16:07 | disposition home or self-care (01) ==
LOC: LBN 16:06
PROVIDERS: PCP Physician Assistant; Visit Provider Internal Medicine
DX: M19.90 Unspecified osteoarthritis, unspecified site (principal); Z79.899 Other long term (current) drug therapy; M06.9 Rheumatoid arthritis, unspecified; E11.9 Type 2 diabetes mellitus without complications
CPT/HCPCS: 80053; 84550; 85025

== ENCOUNTER 2024-04-30 19:38 | Outpatient (REF) | payer BC, SELFPAY ==
[2024-04-30 21:59] LABS: COMMENT (LAB VIEW ONLY) 105.16 mg/dL; Microalb ug/mg Crea 26.4 ug/mg Cr
== END 2024-04-30 19:39 | disposition home or self-care (01) ==
LOC: NCHCN 19:38
PROVIDERS: PCP Physician Assistant; Visit Provider Family Medicine
DX: E11.9 Type 2 diabetes mellitus without complications (principal)
CPT/HCPCS: 82043; 82570